=== PATIENT | male | born 1970 | race Caucasian/White ===

== ENCOUNTER 2021-04-12 23:52 | Emergency (ER) | payer OTHER ==
[~2021-04-12] VITALS: Ht 170.2 cm; Wt 71.0 kg
[~2021-04-12 23:52] MED LIST: BENZONATATE200 MG PO; ZITHROMAX500 MG PO
[2021-04-13] MEDS ORDERED: METRONIDAZOL500 MG PO (00:13)
[2021-04-13] MEDS ORDERED: CEFEPIME1 G2 IV (00:14)
[2021-04-13] MEDS ORDERED: HEPARIN SO5000 UNIT1 (00:15)
[2021-04-13] MEDS ORDERED: HEPARIN IV (00:16)
[2021-04-13] MEDS ORDERED: OXY1 (00:17)
[2021-04-13 00:46] LABS: IMMATURE GRANULOCYTES 0.7 % (0.0-5.0); MEAN CORPUSCULAR HGB 29.7 pG CALC (26.0-32.0); MEAN CORPUSCULAR HGB CONC 31.8 g/dL CAL (32.0-36.0); NEUT# 8.51 thou/uL (1.82-7.42); RED BLOOD COUNT 3.94 mill/uL (4.70-6.10); RED CELL DISTRI WIDTH 14.3 % (11.5-15.5)
[2021-04-13 00:47] LABS: HEMATOCRIT 36.8 % (39.0-50.0); HEMOGLOBIN 11.7 g/dl (14.0-18.0); MEAN CELL VOLUME 93.4 fL CALC (80.0-100.0)
[2021-04-13 00:58] LABS: ALBUMIN 4.1 g/dL (3.2-5.0); AMYLASE 103 u/l (30-110); BILIRUBIN, TOTAL 0.3 mg/dL (0.0-1.4); BUN 24 mg/dL (9-20); BUN/CREATININE RATIO 30 (12-20 (CALC)); CHLORIDE 100 mmol/l (95-108); CREATININE 0.8 mg/dL (0.7-1.3); GFR > 60 ML/MIN (>=60 (CALC)); GFR FOR AFR.AMER. > 60 ML/MIN (>=60 (CALC)); LIPASE 74 u/l (23-300); SGOT/AST 21 u/l (17-59); SODIUM 138 mmol/l (137-146); TOTAL PROTEIN 7.7 g/dL (6.3-8.2)
[2021-04-13 01:01] LABS: ALKALINE PHOSPHATASE 73 u/l (38-126); ANION GAP 13 (6-22 (CALC)); CARBON DIOXIDE 29 mmol/l (22-30)
[2021-04-13 01:09] LABS: MYOGLOBIN 15 ng/mL (0 - 121)
[2021-04-13 01:39] LABS: URINE BILIRUBIN - DIPSTICK NEGATIVE (NEGATIVE); URINE BLOOD DIPSTICK LARGE (NEGATIVE); URINE COLOR YELLOW; URINE GLUCOSE - DIPSTICK NEGATIVE (NEGATIVE); URINE KETONE NEGATIVE (NEGATIVE); URINE LEUK ESTERASE NEGATIVE (NEGATIVE); URINE PROTEIN - DIPSTICK 100 mg/dL (NEG-TRACE); URINE SPECIFIC GRAVITY >=1.030; URINE UROBILINOGEN - DIPSTICK 0.2 E.U./dL (0.2)
[2021-04-13 01:41] LABS: URINE NITRITE - DIPSTICK NEGATIVE (Negative)
[2021-04-13 01:46] LABS: URINE HYALINE CAST RARE lpf (NONE-RARE); URINE SQUAMOUS EPITHELIAL CELL FEW EPI/hpf (0-FEW); URINE WBC 0-2 WBC/hpf (0-5)
[2021-04-13 01:47] LABS: URINE MUCUS MANY hpf (NONE-FEW)
[2021-04-13] MEDS ORDERED: PROTONIX40 M2 PO (03:01)
[2021-04-13 03:10] VITALS: BP 143/84
== END 2021-04-13 03:20 | disposition home or self-care (01) | DRG 392 ==
LOC: ED 23:52
PROVIDERS: Family Medicine
DX: K29.70 Gastritis, unspecified, without bleeding (principal); Z86.16 Personal history of COVID-19; Z99.81 Dependence on supplemental oxygen
CPT/HCPCS: Q9967; S0164